=== PATIENT | female | born 1975 | race Caucasian/White ===

== ENCOUNTER 2016-09-22 10:39 | Emergency (ER) | payer MEDICAID ==
[~2016-09-22] VITALS: Ht 149.9 cm; Wt 66.0 kg
[~2016-09-22 10:39] MED LIST: PREN1TAB9 PO
[2016-09-22 10:56] VITALS: Ht 149.9 cm; Wt 66.0 kg
[2016-09-22] MEDS ORDERED: ACETAMINOPHEN/CODEINE #3 TAB PO ONE (11:30)
[2016-09-22] MEDS ORDERED: IBUPROFEN 600 MG TAB PO ONE (11:30)
[2016-09-22 13:24] LABS: URINE BLOOD (Dip) POC 2+ (NEGATIVE)
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
--- NOTE | 2016-09-22 14:13 | RADRPT ---
PROCEDURE: XR Lumbar Spine. CLINICAL INDICATION: Low back pain. TECHNIQUE: Two views of the lumbar spine available for review COMPARISON: None available FINDINGS: There is normal mineralization, architecture and alignment. There is a mild dextroscoliosis. No fra ctures or osseous lesions are identified. No subluxation is identified. The disk spaces are unrema rkable. The facet joints are unremarkable. The soft tissues are unremarkable. IMPRESSION: Mild dextroscoliosis Otherwise unremarkable examination. RPTAT: HGDB .Sheldon Barker MD, MD Date Time Electronically viewed and signed by .Sheldon Barker MD, on 09/22/2016 14:13 .B/
[2016-09-22] MEDS ORDERED: TRAM50TA2 PO (14:31)
[2016-09-22] MEDS ORDERED: IBUP-1542 PO (14:31)
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
[2016-09-22] MEDS ORDERED: CEPH-443 PO (14:38)
[2016-09-22 15:14] VITALS: BP 148/76; PULSE 85; RESP 18
== END 2016-09-22 15:15 | disposition home or self-care (01) ==
LOC: FTE 10:39
DX: S33.5XXA Sprain of ligaments of lumbar spine, initial encounter (principal); S23.3XXA Sprain of ligaments of thoracic spine, initial encounter; E11.9 Type 2 diabetes mellitus without complications; V89.2XXA Person injured in unspecified motor-vehicle accident, traffic, initial encounter
CPT/HCPCS: 71010; 72100; 81003; Z7502; Z7610